=== PATIENT | female | born 1990 | race African-American/Black ===

== ENCOUNTER 2019-12-08 23:50 | Emergency (ER) | payer MEDICAID ==
[~2019-12-08] VITALS: Ht 167.6 cm; Wt 62.0 kg
[2019-12-09 00:23] VITALS: BP 109/70
== END 2019-12-09 03:13 | disposition left against medical advice (07) ==
LOC: ER 23:50
DX: Z53.21 Procedure and treatment not carried out due to patient leaving prior to being seen by health care provider (principal); D57.1 Sickle-cell disease without crisis; Z88.6 Allergy status to analgesic agent